=== PATIENT | male | born 1980 | race Caucasian/White ===

== ENCOUNTER 2022-03-08 15:05 | Outpatient (CLI) | payer BC, SELFPAY ==
[2022-03-08 16:02] LABS: HIV 1 P24 AG Negative (Negative); HIV 1/2 AB Negative (Negative)
[2022-03-10 15:47] LABS: RPR Screen Non-Reactive (Non-Reactive)
[2022-03-11 05:25] LABS: Hepatitis A Antibody IgM Nonreactive; Hepatitis B Core Antibody Nonreactive (Nonreactive); Hepatitis B Surface Antigen Nonreactive (Nonreactive); Hepatitis C Signal to Cutoff 0.02 ratio (<1.00); Hepatitis C Virus Antibody Nonreactive (Nonreactive)
== END 2022-03-08 15:06 | disposition home or self-care (01) ==
LOC: CHSLAB 15:08
PROVIDERS: PCP Family Medicine; Visit Provider Family Medicine
DX: Z11.3 Encounter for screening for infections with a predominantly sexual mode of transmission (principal)
CPT/HCPCS: 36415; 80074; 86592; 86703; 87491; 87591

== ENCOUNTER 2022-09-11 13:39 | Emergency (ER) | payer BC, OTHER, SELFPAY ==
[2022-09-11 13:48] VITALS: BP 165/98; PULSE 97; RESP 18; TEMP 36.9; O2SAT 99
--- NOTE | 2022-09-11 13:50 | ECG_ITS ---
Measurements Intervals [place] Rate: 109 P: 1 PA: 163 QRS: -43 QRSD: 96 T: 18 QT: 343 QTc: 464 Interpretive Statements SINUS TACHYCARDIA LEFT AXIS DEVIATION BORDERLINE ECG NO PREVIOUS ECG AVAILABLE FOR COMPARISON Electronically Signed On 09-11-2022 15:01:38 CDT by Russ Young M.D.
--- NOTE | 2022-09-11 13:57 | ED.ANXIETY ---
HPI - Anxiety General Chief Complaint: Anxiety Stated Complaint: possible heart attack Time Seen by Provider: 09/11/22 13:57 Source: patient Mode of arrival: ambulatory Limitations: no limitations History of Present Illness HPI narrative: 42-year-old male synthetic CBD last night. For the past 4 hours the patient has been complaining of -- palpitation. no chest pain. No shortness of breath. -- anxiety/ with panic attack MD complaint: anxiety and heart racing Onset (ago): hour(s) ( for the past 4 hours) Symptoms: palpitations Severity: moderate Place: home History of similar episodes: Yes Provoking factors: other ( Possibly CBD) Relieving factors: nothing Exacerbating factors: nothing Associated symptoms: denies other symptoms Related Data Home Medications Medication Instructions Recorded Confirmed omeprazole 20 mg tablet,delayed 20 mg PO DAILY 02/23/21 09/11/22 release Allergies Allergy/AdvReac Type Severity Reaction Status Date / Time No Known Allergies Allergy Verified 09/11/22 13:54 Review of Systems Review of Systems: All systems reviewed & are unremarkable except as noted in HPI and below Constitutional: Constitutional: Reports as per HPI and Reports no additional constitutional complaints Eyes: Eyes: Reports as per HPI and Reports no additional eye complaints ENT: Reports system reviewed and no additional complaints, except as documented and Reports as per HPI Cardiovascular: Cardiovascular: Reports as per HPI, Reports no additional cardiovascular complaints and Reports rapid heart rate Respiratory: Respiratory: Reports as per HPI and Reports no additional respiratory complaints Gastrointestinal: Gastrointestinal: Reports as per HPI and Reports no additional gastrointestinal complaints Genitourinary: Genitourinary: Reports no additional male genitourinary complaints and Reports as per HPI Musculoskeletal: Musculoskeletal: Reports no additional musculoskeletal complaints Integumentary/Breasts: Skin/Breast: Reports system reviewed and no additional complaints, except as docu and Reports as per HPI Neurologic: Reports system reviewed and no additional complaints, except as documented and Reports as per HPI Psychiatric: Psychiatric: Reports no additional psychiatric complaints and Reports as per HPI Endocrine: Endocrine: Reports no additional endocrine complaints and Reports as per HPI Hematologic/Lymphatic: Hematologic/Lymphatic: Reports no additional hematologic/lymphatic complaints and Reports as per HPI Allergic/Immunologic: Allergic/Immunologic: Reports no additional allergic/immunologic complaints and Reports as per HPI PMFSH Past Medical History Medical History GERD (gastroesophageal reflux disease) Surgical History Surgical History No history of previous surgery Family History Family History Mother Diabetes mellitus Father Alcoholism Social History Social History Smoking status: Never smoker Alcohol intake: current Exam Const: General: ill appearing Nutritional Appearance: well nourished Limitations: no limitations HENMT: Head: normal to inspection Ears: external ears normal Face and sinus: normal facial exam Mouth: Yes Normal oral and palatal mucosa present Throat: posterior oropharynx normal Eyes: Conjunctivae: conjunctivae normal Pupils: Equal, round and reactive pupils present EOM: EOMs intact bilaterally Direct Ophthalmoscopy: no photophobia Neck: Neck: normal visual inspection, no lymphadenopathy and no meningeal signs Chest: Chest palpation & inspection: normal inspection of the chest Resp: Effort & Inspection: normal respiratory effort Auscultation: clear to auscultation bilaterally Cardio: Rate: regular rate Rhythm: r
[2022-09-11] MEDS: ALPRAZolam (*CRX) 0.5 MG TABLET PO (14:12)
[2022-09-11 15:03] VITALS: BP 136/96; PULSE 86; RESP 16; TEMP 36.8; O2SAT 97
== END 2022-09-11 15:10 | disposition home or self-care (01) ==
PROVIDERS: Emergency Provider Internal Medicine Critical Care Medicine; PCP Family Medicine
DX: F41.9 Anxiety disorder, unspecified (principal); F41.0 Panic disorder [episodic paroxysmal anxiety]
CPT/HCPCS: 93005; 99283; A9270

== ENCOUNTER 2022-12-21 09:45 | Outpatient (CLI) | payer BC, SELFPAY ==
[2022-12-21 10:21] LABS: Strep Group A RT-PCR NOT DETECTED (Negative)
== END 2022-12-21 09:46 | disposition home or self-care (01) ==
PROVIDERS: PCP Family Medicine; Visit Provider Family Medicine
DX: J02.9 Acute pharyngitis, unspecified (principal)
CPT/HCPCS: 87651

== ENCOUNTER 2023-12-15 14:58 | Outpatient (NON) | payer OTHER, SELFPAY | END 2023-12-15 14:59 | disposition home or self-care (01) | LOC: CHSLAB 15:00 | PROVIDERS: Visit Provider Family Medicine | DX: L82.1 Other seborrheic keratosis (principal) | CPT/HCPCS: 88305 ==

== ENCOUNTER 2024-01-23 00:52 | Emergency (ER) | payer OTHER, SELFPAY ==
--- NOTE | 2024-01-23 00:53 | ECG_ITS ---
Measurements Intervals [place] Rate: 86 P: -12 AL: 141 QRS: -23 QRSD: 96 T: 2 QT: 362 QTc: 434 Interpretive Statements SINUS RHYTHM BORDERLINE LEFTWARD AXIS CANNOT RULE OUT PREVIOUS SEPTAL MS ABNORMAL ECG COMPARED TO ECG 09/11/2022 13:50:06 LOSS OF R-WAVE VOLTAGE IN v2, INTERVAL SEPTAL INFARCTION VERSUS SLIGHTLY DIFFERENT LEAD POSITION Electronically Signed On 01-23-2024 7:34:15 [employer] [employer] by Troy Garcias M.D.
[2024-01-23 00:55] VITALS: BP 152/99; PULSE 97; RESP 24; TEMP 36.5; O2SAT 99
[2024-01-23 01:01] VITALS: BP 152/99; PULSE 97; RESP 14; O2SAT 98
--- NOTE | 2024-01-23 01:04 | ED.ANXIETY ---
HPI - Anxiety General Chief Complaint: Anxiety Stated Complaint: Anxiety Time Seen by Provider: 01/23/24 01:04 Source: patient Mode of arrival: ambulatory Limitations: no limitations History of Present Illness HPI narrative: patient is a 43-year-old male with panic and anxiety. He was laying down for bed and started to have a panic attack. He has been having panic attacks all week. He used to be on Cymbalta but stopped a year ago. He restarted today. He is having associated chest pains and hand arm pains. MD complaint: anxiety Onset (ago): hour(s) (1) Symptoms: chest pain, extremity numbness/tingling and sense of impending doom Severity: similar to previous episodes Quality: constant and worsening Place: home History of similar episodes: Yes Provoking factors: emotional stress Relieving factors: nothing Exacerbating factors: thinking about event ( His son was in the emergency room earlier with a dog bite and got him very upset) Associated symptoms: chest pain Related Data Allergies Allergy/AdvReac Type Severity Reaction Status Date / Time No Known Allergies Allergy Verified 01/23/24 01:15 Review of Systems Review of Systems: All systems reviewed & are unremarkable except as noted in HPI and below Constitutional: Constitutional: Reports no additional constitutional complaints Eyes: Eyes: Reports no additional eye complaints ENT: Reports system reviewed and no additional complaints, except as documented Cardiovascular: Cardiovascular: Reports no additional cardiovascular complaints Respiratory: Respiratory: Reports no additional respiratory complaints Gastrointestinal: Gastrointestinal: Reports no additional gastrointestinal complaints Genitourinary: Genitourinary: Reports no additional male genitourinary complaints Musculoskeletal: Musculoskeletal: Reports no additional musculoskeletal complaints Integumentary/Breasts: Skin/Breast: Reports system reviewed and no additional complaints, except as docu Neurologic: Reports system reviewed and no additional complaints, except as documented Psychiatric: Psychiatric: Reports no additional psychiatric complaints Endocrine: Endocrine: Reports no additional endocrine complaints Hematologic/Lymphatic: Hematologic/Lymphatic: Reports no additional hematologic/lymphatic complaints Allergic/Immunologic: Allergic/Immunologic: Reports no additional allergic/immunologic complaints PMFSH Past Medical History Medical History Elevated blood pressure reading in office with white coat syndrome, without diagnosis of hypertension GERD (gastroesophageal reflux disease) Severe anxiety with panic Sexual dysfunction Surgical History Surgical History No history of previous surgery Family History Family History Mother Diabetes mellitus Father Alcoholism Social History Social History Smoking status: Never smoker Alcohol intake: current Alcohol use details: Originally daily but now 1-3 glasses one setting of wine once monthly. Substance use type: other Exam Const: General: healthy appearing Nutritional Appearance: well nourished Orientation/consciousness: patient oriented x3 HENMT: Head: normal to inspection Ears: external ears normal Face/Nose/Sinus: Normal external nose present Eyes: Conjunctivae: conjunctivae normal Pupils: Equal, round and reactive pupils present EOM: EOMs intact bilaterally Neck: Neck: normal visual inspection Chest: Chest palpation & inspection: normal inspection of the chest Resp: Effort & Inspection: normal respiratory effort and not labored Auscultation: clear to auscultation bilaterally and no crackles Cardio: Rate: regular rate Rhythm: regular rhythm Heart sounds: no murmurs GI: Inspection: non-diste
[2024-01-23 01:16] VITALS: BP 140/84; PULSE 83; RESP 20; O2SAT 99
[2024-01-23] MEDS: LORazepam INJ (*CRX) 2 MG/ML VIAL 1 MG IM (01:19)
== END 2024-01-23 01:50 | disposition home or self-care (01) ==
PROVIDERS: Emergency Provider Emergency Medicine; PCP Family Medicine
DX: F41.0 Panic disorder [episodic paroxysmal anxiety] (principal)
CPT/HCPCS: 93005; 96372; 99283; J2060

== ENCOUNTER 2024-03-11 15:44 | Emergency (ER) | payer OTHER, SELFPAY ==
[2024-03-11] VITALS (10 sets, daily range): BP systolic 138–156; BP diastolic 88–100; PULSE 64–88; RESP 14–20; TEMP 37.1; O2SAT 94–97
--- NOTE | ~2024-03-11 | XR_ITS ---
EXAMINATION: XR chest 1V portable DATE: 03/11/2024 16:08 INDICATION: Left chest pain. TECHNIQUE: A single frontal view of the chest was obtained. COMPARISON: None. FINDINGS: There is no pneumonia, pleural effusion, or pneumothorax. The heart size is normal. IMPRESSION: 1. No acute cardiopulmonary disease. Reviewed, dictated and finalized at location E.
--- NOTE | 2024-03-11 15:46 | ECG_ITS ---
SEE SCANNED COPY FOR CONFIRMED REPORT MTDD
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
[2024-03-11] MEDS: ASPIRIN 81 MG CHEWABLE TABLET 324 MG PO (16:08)
[2024-03-11] MEDS: NITROGLYCERIN SL 0.4 MG TABLET SUBLINGUAL (16:09)
[2024-03-11 16:23] LABS: Basophils Absolute Auto 0.07 K/mm3 (0.00-0.10); Basophils Percent Auto 1.2 % (0.0-1.0); Eosinophils Absolute Auto 0.12 K/mm3 (0.02-0.50); Hematocrit 43.3 % (40.0-54.0); Hemoglobin 14.1 g/dL (14.0-18.0); Immature Granulocyte Absolute 0.03 K/mm3 (0.00-0.00); Immature Granulocyte Percent A 0.5 % (0.0-0.0); Lymphocytes Absolute Auto 1.86 K/mm3 (1.10-4.50); Lymphocytes Percent Auto 31.4 % (18.0-42.0); Mean Corpuscular HGB Conc 32.6 g/dL (32-36); Mean Platelet Volume 9.9 fl (8.7-11.0); Monocytes Absolute Auto 0.53 K/mm3 (0.10-0.90); Neutrophils Absolute Auto 3.31 K/mm3 (1.70-7.20); Neutrophils Percent Auto 55.9 % (50.0-70.0); Platelet Count Result 270 K/mm3 (150-420); Red Blood Count 5.22 M/mm3 (4.70-6.10); Red Cell Distribution Width 13.7 % (11.6-14.4); White Blood Count 5.9 K/mm3 (4.8-10.8)
[2024-03-11 16:35] LABS: Partial Thromboplastin Time 27.1 Sec (23.9-30.70); Prothrombin Time 10.8 Seconds (9.50-12.1)
[2024-03-11] MEDS: LORazepam (*CRX) 0.5 MG TABLET 1 MG PO (16:37)
--- NOTE | 2024-03-11 16:42 | PC.NURSE ---
0615 chest pain 0/10 at this time
[2024-03-11 16:45] LABS: Alanine Aminotransferase 32 U/L (16-63); Albumin Level 3.6 g/dL (3.4-5.0); Alkaline Phosphatase 128 U/L (46-116); Anion Gap 9 mmol/L (4-12); Aspartate Amino Transferase 23 U/L (15-37); Bilirubin,Total 0.5 mg/dL (0.00-1.00); Blood Urea Nitrogen 17 mg/dL (7-18); Calcium 8.8 mg/dL (8.5-10.1); Carbon Dioxide 28 mmol/L (21-32); Chloride 104 mmol/L (98-108); Estimated CRCL calculation 102 ml/min; Estimated Glomerular Filt Rate > 60; Glucose 105 mg/dL (70-99); Lipase 88 U/L (16-77); NT Pro B Type Natriuretic Pept < 11 pg/mL (0-125); Osmolality Calculated 293 mOsm/kg (285-295); Potassium 3.8 mmol/L (3.5-5.1); Sodium 141 mmol/L (136-145); Total Protein 7.2 g/dL (6.4-8.2)
[2024-03-11 17:31] LABS: Amphetamine Screen Urine Negative (Negative); Barbiturate Screen Urine Negative (Negative); Benzodiazepines Screen Urine Negative (Negative); Cannabinoid Screen Urine Positive (Negative); Cocaine Screen Urine Negative (Negative); Methadone Screen Urine Negative (Negative); Opiate Screen Urine Negative (Negative); Phencyclidine Screen Urine Negative (Negative)
--- NOTE | 2024-03-11 17:42 | ECG_ITS ---
SEE SCANNED COPY FOR CONFIRMED REPORT MTDD
[2024-03-11 17:43] LABS: Appearance Urine Clear (Clear); Bilirubin Urine Negative (Negative); Blood Urine Trace-intact (Negative); Color Urine Yellow (Yellow); Glucose Urine UA Negative (Negative); Ketones Urine Negative (Negative); Leukocyte Esterase Ur Negative LEU/UL (Negative); Nitrate Urine Negative (Negative); Protein Urine Negative (Negative); pH Urine 7.5 (5.0-8.0)
[2024-03-11 17:49] LABS: Add Urine Microscopic? YES; RBC Urine 0-2 /hpf (0-2)
[2024-03-11 17:50] LABS: Amorphous Sediment Urine Heavy; Bacteria Urine Trace /hpf
--- NOTE | 2024-03-11 17:58 | PC.NURSE ---
[address] OF ABD MACHINE WILL NOT GO IN FOR SCAN DO TO WEIGHT
== END 2024-03-11 18:14 | disposition home or self-care (01) ==
PROVIDERS: Emergency Provider Emergency Medicine
DX: R07.9 Chest pain, unspecified (principal); F41.9 Anxiety disorder, unspecified; K21.9 Gastro-esophageal reflux disease without esophagitis
CPT/HCPCS: 36415; 71045; 80053; 80307; 81001; 83690; 83880; 84484; 85025; 85610; 85730; 93005; 99284; A9270

== ENCOUNTER 2024-03-16 10:02 | Outpatient (CLI) | payer OTHER, SELFPAY ==
--- NOTE | ~2024-03-16 | XR_ITS ---
Left Shoulder Technique: AP and scapular Y views were obtained. Clinical History: Pain Findings: No fracture or dislocation is seen. Osseous alignment is anatomic. The glenohumeral and acr omioclavicular joint spaces are preserved. Soft tissues are unremarkable. Impression: Unremarkable left shoulder radiographs. Reviewed, dictated and finalized at [facility]. Impression: Unremarkable left shoulder radiographs.
== END 2024-03-16 10:03 | disposition home or self-care (01) ==
PROVIDERS: PCP Nurse Practitioner Family; Visit Provider Nurse Practitioner Family
DX: M25.512 Pain in left shoulder (principal)
CPT/HCPCS: 73030

== ENCOUNTER 2024-09-20 07:23 | Outpatient (CLI) | payer OTHER, SELFPAY ==
--- NOTE | ~2024-09-20 | MR_ITS ---
Procedure: MR shoulder RT wo con Ordering provider: Darren Hansen APRN History: . pulling injury 09/05/24 pain and LRM (rt side) . Comparison: Technique: MRI right shoulder without contrast. FINDINGS: ACROMIOCLAVICULAR JOINT: Mild arthropathy. No medial coracoacromial arch stenosis. ROTATOR CUFF: The supraspinatus tendon shows T2 bright signal at the insertion into the humerus which may indicate tendinosis or partial tear.. Clinical correlation and follow-up advised. No subacromial subdeltoid bursitis. No evidence for subcoracoid impingement. Bright signal is seen in the subscapul og tendon near to the insertion which may indicate tendinosis or partial tear. PROXIMAL BICEPS TENDON: The proximal biceps tendon and biceps labral complex are normal. The rotator interval is normal as visualized without intraarticular contrast. INFERIOR GLENOHUMERAL LIGAMENT COMPLEX: Normal anterior and posterior bands. Normal axillary pouch. LABRUM: The superior labrum is normal. The anteroinferior labrum is normal. The posterior labrum is normal. BONES: Mild bright signal seen near to the insertion of the subscapularis with indicate bone contusi on. Marrow signal is otherwise normal. GLENOHUMERAL JOINT SPACE: The glenohumeral joint space is well maintained although the articular cart ilage is not well visualized without intraarticular contrast. No joint effusion. SUPERFICIAL AND DEEP SOFT TISSUES: Otherwise, normal. No paralabral cyst. IMPRESSION: T2 bright signal near to the insertion of the supraspinatus and subscapularis most likely due to part ial tear. Follow-up advised. T2 bright signal in the humeral head near to the insertion of the subscapularis tendon which may be d egenerative or due to bone contusion. Reviewed, dictated and finalized at location A. IMPRESSION: T2 bright signal near to the insertion of the supraspinatus and subscapularis m ost likely due to partial tear. Follow-up advised. T2 bright signal in the humeral head near to the insertion of the subscapularis tendon which may be degenerative or due to bone contusion.
== END 2024-09-20 07:24 | disposition home or self-care (01) ==
PROVIDERS: PCP Nurse Practitioner Family; Visit Provider Nurse Practitioner Family
DX: M25.611 Stiffness of right shoulder, not elsewhere classified (principal); M25.511 Pain in right shoulder
CPT/HCPCS: 73221

== ENCOUNTER 2024-09-20 12:16 | Emergency (ER) | payer OTHER, SELFPAY ==
[2024-09-20 12:18] VITALS: BP 135/85; PULSE 79; RESP 12; TEMP 36.7; O2SAT 100
--- NOTE | 2024-09-20 12:34 | ECG_ITS ---
Test Date: 2024-09-20 13:29:08 Measurements Intervals [place] Rate: 69 P: -21 FL: 146 QRS: 14 QRSD: 112 T: 6 QT: 362 QTc: 389 Interpretive Statements SINUS RHYTHM No previous ECG available for comparison Electronically Signed On 09-20-2024 15:24:27 CDT by Carlos Mosqueda M.D.
[2024-09-20 12:54] LABS: Hematocrit 41.7 % (40.0-54.0); Hemoglobin 13.4 g/dL (14.0-18.0); Lymphocytes Percent Auto 21.1 % (18.0-42.0); Mean Corpuscular HGB Conc 32.1 g/dL (32-36); Mean Corpuscular Hemoglobin 26.3 pg (27.0-31.0); Mean Corpuscular Volume 81.8 fL (78.0-102.0); Monocytes Percent Auto 8.1 % (2.0-11.0); Neutrophils Percent Auto 69.6 % (50.0-70.0); Platelet Count Result 254 K/mm3 (150-420); White Blood Count 6.1 K/mm3 (4.8-10.8)
[2024-09-20 12:55] LABS: Immature Granulocyte Percent A 0.2 % (0.0-0.0); Mean Platelet Volume 9.7 fl (8.7-11.0); Red Cell Distribution Width 14.8 % (11.6-14.4)
[2024-09-20 12:56] LABS: Basophils Absolute Auto 0.04 K/mm3 (0.00-0.10); Basophils Percent Auto 0.7 % (0.0-1.0); Eosinophils Absolute Auto 0.02 K/mm3 (0.02-0.50); Eosinophils Percent Auto 0.3 % (1.0-6.0); Immature Granulocyte Absolute 0.01 K/mm3 (0.00-0.00); Lymphocytes Absolute Auto 1.28 K/mm3 (1.10-4.50); Monocytes Absolute Auto 0.49 K/mm3 (0.10-0.90); Neutrophils Absolute Auto 4.22 K/mm3 (1.70-7.20)
--- NOTE | 2024-09-20 13:11 | PC.NURSE ---
Pt is sleeping comfortably on the stretcher at this time. No safety concerns noted.
[2024-09-20 13:18] LABS: Alanine Aminotransferase 31 U/L (16-63); Albumin Level 3.3 g/dL (3.4-5.0); Alkaline Phosphatase 109 U/L (46-116); Anion Gap 5 mmol/L (4-12); Aspartate Amino Transferase 18 U/L (15-37); Bilirubin,Total 0.4 mg/dL (0.00-1.00); Blood Urea Nitrogen 18 mg/dL (7-18); Calcium 8.8 mg/dL (8.5-10.1); Carbon Dioxide 29 mmol/L (21-32); Chloride 108 mmol/L (98-108); Estimated CRCL calculation 91 ml/min; Estimated Glomerular Filt Rate > 60; Glucose 100 mg/dL (70-99); Osmolality Calculated 295 mOsm/kg (285-295); Potassium 4.5 mmol/L (3.5-5.1); Salicylate 0.9 mg/dL (2.8-20.0); Sodium 142 mmol/L (136-145); Total Protein 6.6 g/dL (6.4-8.2)
[2024-09-20 13:20] LABS: Ethanol < 3 mg/dL (0-6)
[2024-09-20 13:26] LABS: Add Urine Microscopic? NO; Appearance Urine Clear (Clear); Bilirubin Urine Negative (Negative); Blood Urine Negative (Negative); Color Urine Light Yellow (Yellow); Glucose Urine UA Negative (Negative); Ketones Urine Negative (Negative); Leukocyte Esterase Ur Negative LEU/UL (Negative); Nitrate Urine Negative (Negative); Protein Urine Negative (Negative); Urobilinogen Urine 0.2 mg/dL (0.2-1.0)
[2024-09-20 13:34] LABS: Amphetamine Screen Urine Negative (Negative); Barbiturate Screen Urine Negative (Negative); Benzodiazepines Screen Urine Negative (Negative); Cannabinoid Screen Urine Positive (Negative); Cocaine Screen Urine Negative (Negative); Methadone Screen Urine Negative (Negative); Opiate Screen Urine Negative (Negative); Phencyclidine Screen Urine Negative (Negative)
--- NOTE | 2024-09-20 13:36 | PC.NURSE ---
Pt's is in room with pt. Made sure she removed all items before entering room. is now cuddling pt
--- NOTE | 2024-09-20 14:07 | PC.NURSE ---
Pt is resting comfortably at bedside with . No safety concerns at this time. Pt requested a meal stating he had not eaten all day. Forwarded that information to RN
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
[2024-09-20 14:14] VITALS: RESP 20
--- NOTE | 2024-09-20 14:43 | PC.NURSE ---
1440 SPOKE TO POISON CONTROL UPDATED WITH EKG AND LABS PT TO BE MONITORED FOR [address] TRAN AWARE
--- NOTE | 2024-09-20 15:14 | PC.NURSE ---
Pt is sleeping comfortably at this time. No safety concerns noted.
--- NOTE | 2024-09-20 16:04 | PC.NURSE ---
Pt is sleeping comfortably at this time. No safety concerns noted.
[2024-09-20 16:30] VITALS: BP 128/90; PULSE 95; RESP 18; TEMP 36.3; O2SAT 99
--- NOTE | 2024-09-20 17:02 | PC.NURSE ---
Pt is sleeping comfortably at this time. No safety concerns noted.
--- NOTE | 2024-09-20 17:59 | PC.NURSE ---
Pt was resting comfortably. Completed EKG on pt. No safety concerns noted at this time.
--- NOTE | 2024-09-20 18:29 | ECG_ITS ---
Test Date: 2024-09-20 17:55:15 Measurements Intervals [place] Rate: 73 P: 2 SC: 144 QRS: -39 QRSD: 100 T: 15 QT: 357 QTc: 395 Interpretive Statements SINUS RHYTHM LEFT AXIS DEVIATION [QRS AXIS < -30] Compared to ECG 09/20/2024 13:29:08 NO SIGNIFICANT CHANGES Electronically Signed On 09-21-2024 15:23:41 CDT by Carlos Mosqueda M.D.
--- NOTE | 2024-09-20 18:56 | PC.NURSE ---
Pt is sleeping comfortably at this time. No safety concerns, noted.
--- NOTE | 2024-09-20 19:05 | PC.NURSE ---
1800 POISON CONTROL CLOSED THE CASE #[id number]
[2024-09-20 19:40] VITALS: RESP 16
[2024-09-20] MEDS: IBUPROFEN 600 MG TABLET PO (19:56)
[2024-09-20 20:30] VITALS: BP 142/88; PULSE 90; RESP 18; TEMP 36.8; O2SAT 99
--- NOTE | 2024-09-20 22:26 | PC.NURSE ---
PT GIVEN BELONGINGS BACK TO CHANGE. PT HAS HIS COPY OF SAFETY PLAN. AT BS, PRESCRIPTION BOTTLES GIVEN TO . PT AND VERBALIZE UNDERSTANDING TO GO TO LIVING ROOM FROM [facility]. F/U APPOINTMENT ON September, SCHEDULED BY ANASTASIA BORREGO. DR JOSE AWARE OF PLAN AND COMPLETING D/C INSTRUCTIONS.
== END 2024-09-20 22:32 | disposition home or self-care (01) ==
PROVIDERS: Emergency Provider Emergency Medicine; PCP Nurse Practitioner Family
DX: T50.902A Poisoning by unspecified drugs, medicaments and biological substances, intentional self-harm, initial encounter (principal); Z79.899 Other long term (current) drug therapy
CPT/HCPCS: 36415; 80053; 80143; 80179; 80307; 81003; 82077; 84443; 85025; 93005; 99284; A9270

== ENCOUNTER 2024-11-26 12:30 | Outpatient (RCR) | payer OTHER, SELFPAY ==
[2024-11-22 08:05] VITALS: BP_SYST 120
--- NOTE | 2024-11-22 09:03 | OPREHPOC ---
Outpatient Therapy Plan of Care This is a Multidisciplinary Plan of Care that may contain components documented by all disciplines (PT, OT, and ST.) PT Problem 1 PT Problem #1 Knowledge Deficit PT Goal 1 Goal / Goal Update *indep with HEP Target Visit 6 PT Goal 2 Goal / Goal Update * good posture of shoulder with exercises and sitting Target Visit 6 PT Problem 2 PT Problem #2 Pain PT Goal 1 Goal / Goal Update *pt report pain of 5/10 at worst Target Visit 6 PT Goal 2 Goal / Goal Update * pt report with sleeping, awaken 1x/night due to shoulder pain Target Visit 6 PT Problem 3 PT Problem #3 Impaired Strength PT Goal 1 Goal / Goal Update *increase active motion and ROM of R shoulder, 3 reps in standing, to increase use of R UE 1* flexion 120' 2* abduction 120' 3* IR- reach behind back, palm to waist 4* ER- reach to back of head, palm to back of head Target Visit 6
--- NOTE | 2024-11-22 09:03 | PTOPEVAL1 ---
Assessment and note entered by Selene Snell, PT Evaluation Information Assessment Status Evaluation ICD-10 Condition Codes (PT) Pain in right shoulder M25.511,Weakness R53.1 Other ICD-10 Condition Codes ( M75.81 OA R shoulder PT) Onset Sep 05, 2024 Subjective Information injury to R shoulder with moving a 55 gallon drum at work; have had 2 injections into shoulder, helped some, but still gives him trouble; MRI: supraspinatus and subscapularis with partial tear and humeral head bony contusion. 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 Onset of shoulder pain with lifting at work in August. MRI was positive for changes. He has had 2 injections and shoulder pain has decreased slightly. R hand dominant. Quick DASH self rating of % limitation in activity level. With the evaluation, he has decreased strength and ROM of R shoulder, with rounded shoulder posture. Skilled PT services are indicated for modalities to decrease pain, therapeutic exercises to increase ROM and strength of R shoulder with education on posture and HEP. Plan of Care Interventions Electrical Stimulation,Hot Pack/Cold Pack,Manual Therapy,Neuro Re-education,Patient/Caregiver Education,Therapeutic Activities,Therapeutic Exercise,Ultrasound,Other Other Interventions taping PT Services Indicated Yes Treatment Frequency and 2x/wk for 6 visits Duration These treatments will address the objective and functional deficits as defined above. The patient will be advanced safely and appropriately in order for the patient to progress towards his/her prior level of function. Additional exercises will be introduced and as well as a comprehensive home exercise program upon discharge, if needed, ?to ensure carryover of functional gains achieved in the clinic. This treatment plan has been reviewed and agreement upon by the patient.
--- NOTE | 2024-11-30 07:57 | PCPTNOTE ---
No call no show, reason unknown. AKCassidy
--- NOTE | 2024-12-04 14:07 | PCPTNOTE ---
No call no show. Called pt to see how follow MD appt went today. Asked pt to call us is he will need our services in the future. SARAH
--- NOTE | 2024-12-12 15:24 | PCPTNOTE ---
pt did not show for today's reeval appt
--- NOTE | 2024-12-13 13:44 | PTOPDC ---
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 Assessment PT Clinical Summary Troy has received 2 PT sessions on Nov 22 and , then he did not show for 3 scheduled appointments. Discharge PT. The goals were not addressed. Plan of Care PT Services Indicated No
== END 2024-12-14 13:00 | disposition home or self-care (01) ==
LOC: ANHPT 12:30
PROVIDERS: PCP Nurse Practitioner Family; Visit Provider Orthopaedic Surgery
DX: M19.011 Primary osteoarthritis, right shoulder (principal); M75.81 Other shoulder lesions, right shoulder
CPT/HCPCS: 97014; 97110; 97140; 97161; 97530; G0283